=== PATIENT | male | born 1955 | race Caucasian/White ===

== ENCOUNTER 2016-03-17 05:26 | Observation (INO) | payer MEDICARE, OTHER ==
[~2016-03-17] VITALS: Ht 160 cm; Wt 79.5 kg
[~2016-03-17 05:26] MED LIST: CLON0.5T4 PO; GABA300C16 PO; HYDR-762 PO; LACT10SO5 PO; LANT3I SC; NOV SC; TAMS0.4C2 PO; THIA100T10 PO; TIOT18CA PO
[2016-03-17 05:35] VITALS: Ht 160 cm; Wt 79.5 kg
[2016-03-17] MEDS ORDERED: LORAZEPAM 2 MG INJ IM ONE (06:00)
[2016-03-17] MEDS ORDERED: HALOPERIDOL 5 MG INJ IM STA (06:40)
[2016-03-17] MEDS ORDERED: MAGNESIUM SULFATE 2 GM, MULTIVITAMINS 10 ML, THIAMINE 100 MG, FOLIC ACID 1 MG in SOD CH... IV STA (06:40)
[2016-03-17] MEDS ORDERED: LORAZEPAM 2 MG INJ IV PRN ×2 (07:00→18:30)
[2016-03-17] MEDS ORDERED: HALOPERIDOL 5 MG INJ IV ONE (08:00)
[2016-03-17] MEDS ORDERED: DIPHENHYDRAMINE 50 MG INJ IV ONE (08:00)
[2016-03-17] MEDS ORDERED: HALOPERIDOL 5 MG INJ IM ONE (08:30)
[2016-03-17] MEDS ORDERED: DIPHENHYDRAMINE 50 MG INJ IM ONE (08:30)
[2016-03-17] MEDS ORDERED: LORAZEPAM 2 MG INJ IM PRN (08:30)
[2016-03-17 08:41] LABS: ALBUMIN 4.2 g/dl (3.3-4.9)
[2016-03-17 08:42] LABS: CHLORIDE 99 mmol/L (97-110); POTASSIUM 3.7 mmol/L (3.5-5.1); SODIUM 141 mmol/L (135-144)
[2016-03-17 08:44] LABS: ALBUMIN/GLOBULIN RATIO 0.82; ANION GAP 19 (8-16); ASPARTATE AMINO TRANSFERASE 43 IU/L (15-46); BILIRUBIN,INDIRECT 0.5 mg/dl (0-1.1); BILIRUBIN,TOTAL 0.5 mg/dl (0.2-1.3); CARBON DIOXIDE 27 mmol/L (21-31); TOTAL PROTEIN 9.3 g/dl (6.1-8.1)
[2016-03-17 08:45] LABS: ALANINE AMINOTRANSFERASE 33 IU/L (13-69); ALKALINE PHOSPHATASE 141 IU/L (42-121); BLOOD UREA NITROGEN 10 mg/dl (7-20); GLUCOSE 120 mg/dl (70-220)
[2016-03-17 08:48] LABS: ACETAMINOPHEN < 10.0 ug/ml (10.0-30.0); SALICYLATE < 1.0 mg/dl (5.0-30.0)
[2016-03-17 08:50] LABS: EOSINOPHILS % 0.8 % (0.0-7.0); HEMATOCRIT 41.7 % (42.0-52.0); HEMOGLOBIN 14.2 g/dl (14.0-18.0); LYMPHOCYTES # 0.8 10^3/ul (0.8-2.9); LYMPHOCYTES % 16.9 % (15.0-51.0); MEAN CORPUSCULAR HEMOGLOBIN 29.9 pg (29.0-33.0); MEAN CORPUSCULAR HGB CONC 34.1 g/dl (32.0-37.0); MEAN CORPUSCULAR VOLUME 87.8 fl (82.0-101.0); MEAN PLATELET VOLUME 8.5 fl (7.4-10.4); MONOCYTE # 0.3 10^3/ul (0.3-0.9); MONOCYTES % 5.4 % (0.0-11.0); NEUTROPHIL # 3.7 10^3/ul (1.6-7.5); NEUTROPHILS % 76.9 % (39.0-77.0); PLATELET COUNT 50 10^3/UL (140-440); RED BLOOD COUNT 4.75 10^6/ul (4.70-6.10); RED CELL DISTRIBUTION WIDTH 16.2 % (11.5-14.5); UNCORRECTED WBC 4.8 10^3/ul (4.8-10.8); WHITE BLOOD COUNT 4.8 10^3/ul (4.8-10.8)
[2016-03-17 08:54] LABS: CONDITION 1; LH ANALYZER COMMENTS 1
[2016-03-17 09:56] LABS: ADD UMIC YES; URINE BILIRUBIN (Dip) NEGATIVE (NEGATIVE); URINE BLOOD (Dip) 2+ (NEGATIVE); URINE COLOR YELLOW (YELLOW); URINE GLUCOSE (Dip) NEGATIVE (NEGATIVE); URINE KETONES (Dip) NEGATIVE (NEGATIVE); URINE LEUKOCYTE ESTERASE (Dip) NEGATIVE (NEGATIVE); URINE NITRITE (Dip) NEGATIVE (NEGATIVE); URINE TOTAL PROTEIN (Dip) 1+ (NEGATIVE); URINE UROBILINOGEN (Dip) 2.0 E.U./dL (0.1-1.0)
[2016-03-17 10:12] LABS: MUCUS,URINE FEW
[2016-03-17 10:27] LABS: BARBITURATES Negative (NEGATIVE); BENZODIAZEPINES Negative (NEGATIVE); CANNABINOIDS Positive (NEGATIVE); COCAINE Negative (NEGATIVE); OPIATES Positive (NEGATIVE)
[2016-03-17 10:56] VITALS: TEMP 96.8
--- NOTE | 2016-03-17 14:38 | ERD ---
ER Documentation Chief Complaint Date/Time DATE: 03/17/16 TIME: 14:29 Chief Complaint HEROIN WITHDRAWL HPI Patient is a 60-year-old male who tells me that he started using heroin 6 months ago to control his chronic leg pain. He says he broke his leg in a year and a half ago and was seeing a surgeon for the leg pain for which he was receiving narcotics but he states the narcotics were not controlling his pain. He says his neighbors told him to try heroin which she started taking it and then he became addicted. He says that a few days ago he stopped taking the heroin and he began to withdrawal. He says he has been nauseated and vomiting he has been having some diarrhea as well as body aches. He says he lives alone and he has been having some trouble taking care of himself because of the withdrawal. He says he never would have taken the heroin if he known how addictive it was going to be. I asked him if he was feeling depressed or suicidal and he says no he was just disappointed that he had taken heroin. He denies any homicidal ideations or any visual or auditory hallucinations. He says he is not trying to hurt himself. And he does not want to go anywhere for detox. He denies any chest pain, shortness of breath, fever, cough, congestion , rhinorrhea, sore throat, headache, abdominal pain, abnormal rashes, bleeding, or bruises. He has been in his usual state of health otherwise. The only other thing that really bothers him is his chronic leg pain. ROS All systems reviewed and are negative except as per history of present illness. Medications Home Meds Active Scripts Hydrocodone Bit-Acetaminophen* ([place]*) 10-325 Mg Tablet, 1 TAB PO Q6 Y for PAIN , #18 TAB Prov:RADHA CAMPOS PA-C 07/27/14 Reported Medications Insulin Aspart* (Novolog Insulin Vial*) 100 U/Ml Vial, 20 UNIT SC WITH MEALS BEDTIME, VIAL 08/04/14 Insulin Glargine* (Lantus*) 100 Unit/Ml Soln, 40 UNIT SC DAILY, EA 08/04/14 Lactulose* (Lactulose*) 10 Gm/15 Ml Solution, 10 GM PO Q6 Y for CONSTIPATION, ML 08/04/14 Tamsulosin Hcl* (Tamsulosin Hcl*) 0.4 Mg Cap.er.24h, 0.4 MG PO HS, CAP 11/23/13 Tiotropium Moyers* (Spiriva*) 18 Mcg Cap.w.dev, 1 INH PO DAILY, EA 07/26/13 Clonazepam* (Clonazepam*) 0.5 Mg Tablet, 0.5 MG PO DAILY Y for ANXIETY 04/29/13 Gabapentin* (Gabapentin*) 300 Mg Capsule, 600 MG PO BID 04/29/13 Thiamine* (Thiamine*) 100 Mg Tablet, 100 MG PO DAILY 04/29/13 Allergies Allergies: Coded Allergies: No Known Allergy (Unverified , 09/16/14) PMhx/Soc History of Surgery: Yes (right knee replacement) Anesthesia Reaction: No Hx Neurological Disorder: No Hx Respiratory Disorders: Yes (COPD) Hx Cardiac Disorders: No Hx Psychiatric Problems: Yes (PTSD) Hx Miscellaneous Medical Probl: Yes (LIVER DISEASE) Hx Alcohol Use: Yes (SOCIAL) Hx Substance Use: Yes (POT, HEROIN ) Hx Tobacco Use: No Smoking Status: Former smoker FmHx Family History: coronary disease Physical Exam Vitals Vital Signs Date Time Temp Pulse Resp B/P Pulse Ox O2 Delivery O2 Flow Rate FiO2 03/17/16 10:56 96.8 86 18 155/86 03/17/16 08:37 98 151/92 99 Room Air 03/17/16 07:20 98.6 90 16 134/85 100 Room Air 03/17/16 05:35 98.2 60 20 138/88 95 Physical Exam Const: [] Well-developed thin male on the bed covered in feces and urine, disheveled Head: Atraumatic normocephalic Eyes: Normal Conjunctiva ENT: Normal External Ears, Nose and Mouth. Neck: Full range of motion..~ No meningismus. Resp: Clear to auscultation bilaterally Cardio: Regular rate and rhythm, no murmurs Abd: Soft, non tender, non distended. Normal bowel sounds Skin: No petechiae or rashes Back: No midline or flank tenderness Ext: No cyanosis, or edema, right lower extremity is in a brace. It appears to have healed but it also appears that it has some vascular insufficiency that appears chronic Neur: Awake and alert oriented 3 with a GCS of 15 Psych: Normal Mood and Affect Result Diagram: 03/17/16 0702 03/17/16 0702 Results 24 hrs Laboratory Tests Test 03/17/16 07:02 03/17/16 09:19 Acetaminophen Level < 10.0ug/ml Alanine Aminotransferase (ALT/SGPT) 33IU/L Albumin 4.2g/dl Albumin/Globulin Ratio 0.82 Alkaline Phosphatase 141IU/L Anion Gap 19 Aspartate Amino Transf (AST/SGOT) 43IU/L Basophils # 0.010^3/ul Basophils % 0.0% Blood Morphology Comment Blood Urea Nitrogen 10mg/dl Calcium Level 9.0mg/dl Carbon Dioxide Level 27mmol/L Chloride Level 99mmol/L Creatinine 0.70mg/dl Direct Bilirubin 0.00mg/dl Eosinophils # 0.010^3/ul Eosinophils % 0.8% Ethyl Alcohol Level 180.0mg/dl Globulin 5.10g/dl Glucose Level 120mg/dl Hematocrit 41.7% Hemoglobin 14.2g/dl Indirect Bilirubin 0.5mg/dl Lymphocytes # 0.810^3/ul Lymphocytes % 16.9% Mean Corpuscular Hemoglobin 29.9pg Mean Corpuscular Hemoglobin Concent 34.1g/dl Mean Corpuscular Volume 87.8fl Mean Platelet Volume 8.5fl Monocytes # 0.310^3/ul Monocytes % 5.4% Neutrophils # 3.710^3/ul Neutrophils % 76.9% Nucleated Red Blood Cells # 0.010^3/ul Nucleated Red Blood Cells % 0.0/100WBC Platelet Count 5010^3/UL Potassium Level 3.7mmol/L Red Blood Count 4.7510^6/ul Red Cell Distribution Width 16.2% Salicylates Level < 1.0mg/dl Sodium Level 141mmol/L Total Bilirubin 0.5mg/dl Total Protein 9.3g/dl White Blood Count 4.810^3/ul Urine Amphetamines Screen POSITIVE Urine Barbiturates Negative Urine Benzodiazepines Screen Negative Urine Bilirubin NEGATIVE Urine Cannabinoids Positive Urine Clarity CLEAR Urine Cocaine Screen Negative Urine Color YELLOW Urine Glucose NEGATIVE% Urine Hemoglobin 2+ Urine Ketones NEGATIVE Urine Leukocyte Esterase NEGATIVE Urine Microscopic RBC 5-10/HPF Urine Microscopic WBC NONE SEEN/HPF Urine Mucus FEW Urine Nitrite NEGATIVE Urine Opiates Screen Positive Urine Specific Wh[place]aker 1.020 Urine Total Protein 1+ Urine Urobilinogen 2.0 E.U./dL Urine pH 6.5 Current Medications Medications (Trade) Dose Ordered Sig/Jennifer Route PRN Reason Start Time Stop Time Status Last Admin Dose Admin Lorazepam 2 mg 2 mg ONCE ONCE IM 03/17/16 06:00 03/17/16 06:01 DC 03/17/16 05:49 Magnesium Sulfate/ Multivitamins/ Thiamine HCl/ Folic Acid/Sodium Chloride (Magnesium Sulfate/Mvi Adult/ Vitamin B1/Folic Acid/NS) 1,015.2 ml @ 500 mls/ hr Q2H2M STAT IV 03/17/16 06:40 03/17/16 08:41 DC 03/17/16 07:41 Lorazepam (Ativan) 2 mg PRN PRN IV agitation 03/17/16 07:00 03/17/16 07:07 Haloperidol (Haldol) 5 mg ONCE STAT IM 03/17/16 06:40 03/17/16 06:44 DC 03/17/16 07:07 Haloperidol (Haldol) 5 mg ONCE ONCE IV 03/17/16 08:00 03/17/16 08:01 DC 03/17/16 08:14 Diphenhydramine HCl (Benadryl) 25 mg ONCE ONCE IV 03/17/16 08:00 03/17/16 08:01 DC 03/17/16 08:14 Haloperidol (Haldol) 5 mg ONCE ONCE IM 03/17/16 08:30 03/17/16 08:31 DC 03/17/16 08:20 Diphenhydramine HCl (Benadryl) 25 mg ONCE ONCE IM 03/17/16 08:30 03/17/16 08:31 DC 03/17/16 08:20 Lorazepam (Ativan) 2 mg PRN PRN IM AGITATION 03/17/16 08:30 Departure Diagnosis: Primary Impression: Drug withdrawal Substance type: opioid Qualified Code: F11.23 - Opioid withdrawal Additional Impressions: Chronic pain Chronic pain type: chronic pain syndrome Qualified Code: G89.4 - Chronic pain syndrome Polysubstance abuse Condition: Fair Patient Instructions: Narcotic Withdrawal, Substance abuse Additional Instructions: Please make a follow-up appointment with your surgeon who was previously evaluated a year and treating you for your chronic leg pain. He may want to also see a pain specialist for this chronic leg pain. Also I am giving you an information sheet on local detox centers. It would be in your best interest to make an appointment with ONE of them. Return to the emergency department for any new or worsening symptoms. ZOEY STARK Mar 17, 2016 14:38
[2016-03-17] MEDS ORDERED: ACETAMINOPHEN 325 MG TAB PO PRN ×2 (17:30→18:30)
[2016-03-17] MEDS ORDERED: ONDANSETRON 4 MG INJ IV PRN ×2 (17:30→18:30)
[2016-03-17] MEDS ORDERED: SOD CHLORIDE 0.9% 1,000 ML IV SCH (18:20)
[2016-03-17] MEDS ORDERED: morphine 2 MG INJ IV PRN (18:30)
[2016-03-17] MEDS ORDERED: ALBUTEROL/IPRATROPIUM (NEB) 3 ML AMP HHN PRN (18:30)
[2016-03-17] MEDS ORDERED: hydrALAzine 20 MG INJ IV PRN (18:30)
[2016-03-17] MEDS ORDERED: NITROGLYCERIN (SL) 0.4 MG TAB SL PRN (18:30)
[2016-03-17] MEDS ORDERED: NACL 0.9% 3 ML SYG IV SCH (18:30)
[2016-03-17] MEDS ORDERED: LACTULOSE 30ML CUP PO PRN (18:30)
[2016-03-17] MEDS ORDERED: HYDROCODONE/APAP (5/325) TAB PO PRN (18:30)
[2016-03-17] MEDS ORDERED: MAGNESIUM HYDROXIDE 30ML CUP PO PRN (18:30)
[2016-03-17] MEDS ORDERED: NA PHOSPHATE/BIPHOS 133 ML ENEMA PR PRN (18:30)
[2016-03-17] MEDS ORDERED: DOCUSATE SODIUM 100 MG CAP PO PRN (18:30)
[2016-03-17] MEDS ORDERED: DEXTROSE 50% 50 ML SYRINGE IV PRN ×2 (20:30)
[2016-03-17] MEDS ORDERED: GLUCOSE GEL 15 GRAM TUBE BUCCAL PRN (20:30)
[2016-03-17] MEDS ORDERED: GLUCAGON 1 MG INJ IM PRN (20:30)
[2016-03-17] MEDS ORDERED: GLUCOSE GEL 15 GRAM TUBE PO PRN ×2 (20:30)
[2016-03-17 20:56] VITALS: BP 136/77; PULSE 58; RESP 22
[2016-03-17] MEDS ORDERED: CHLORDIAZEPOXIDE 25 MG CAP PO SCH (21:00)
[2016-03-17] MEDS ORDERED: TAMSULOSIN (SR) 0.4 MG CAP PO SCH (21:00)
[2016-03-17] MEDS ORDERED: HEPARIN 5,000 UNIT/0.5 ML SYG SC SCH (21:00)
[2016-03-18] MEDS ORDERED: PANTOPRAZOLE 40 MG INJ IV SCH (06:00)
[2016-03-18] MEDS ORDERED: MULTIVITAMINS 10 ML, THIAMINE 100 MG, FOLIC ACID 1 MG in SOD CHLORIDE 0.9% 1,000 ML IVPB SCH (09:00)
[2016-03-18] MEDS ORDERED: ASPIRIN (EC) 81 MG TAB PO SCH (09:00)
[2016-03-18] MEDS ORDERED: INSULIN GLARGINE [LANtus] 3 ML PEN SC SCH (09:00)
[2016-03-18] MEDS ORDERED: TIOTROPIUM 18 MCG CAPSULE INHA DEV INH SCH (09:00)
[2016-03-18] MEDS ORDERED: THIAMINE 100 MG TAB PO SCH (09:00)
== END 2016-03-17 21:02 | disposition left against medical advice (07) ==
LOC: E/R 05:26 → PP2 17:24
PROVIDERS: ADMIT Hospitalist; ATTEND Hospitalist
DX: F11.23 Opioid dependence with withdrawal (principal); G89.4 Chronic pain syndrome
CPT/HCPCS: 36415; 80053; 80306; 80307; 81001; 84439; 85025; 87086; 96372; 96374; 96375; 99285; G0378; J1200; J1630; J2060; J3411; J3475; J7030; 81003; J1815

== ENCOUNTER 2017-07-15 08:44 | Emergency (ER) | END 2017-07-15 11:10 | disposition home or self-care (01) ==